=== PATIENT | female | born 1985 | race Caucasian/White ===

== ENCOUNTER 2017-03-14 16:02 | Outpatient (CLI) | payer OTHER ==
[~2017-03-14] VITALS: Ht 160 cm; Wt 89.9 kg
[2017-03-14 16:08] VITALS: Ht 160 cm; Wt 89.9 kg
[2017-03-14 16:09] VITALS: BP 121/81; PULSE 102; RESP 18
--- NOTE | 2017-03-14 16:42 | RADRPT ---
PROCEDURE: US OB biophysical profile. CLINICAL INDICATION: decreased movements, contractions TECHNIQUE: Multiple sonographic images of the pelvis were obtained. The images were reviewed on a PACS workstation. COMPARISON: No prior studies are available for comparison. FINDINGS: There is a single viable intrauterine gestation. Cardiac activity is present with 140 beats per min [place]. There is a vertex presentation. The placenta is posterior. There is no evidence of placental abruption. There is a normal amount of amniotic fluid with an JEWEL = 14.6 cm. Biophysical profile: movement 2/2 tone 2/2. breathing 2/2 JEWEL 2/2 Total 01/10 RPTAT: AA . IMPRESSION: Normal biophysical profile. . .Chavez Worley MD, MD Date Time Electronically viewed and signed by .Chavez Worley MD, MD on 03/14/2017 16:41 .S/
[2017-03-14 17:23] LABS: ADD UMIC YES; UR ASCORBIC ACID NEGATIVE (NEGATIVE); UR BACTERIA MANY /HPF (NONE SEEN); UR BILIRUBIN (Dip) NEGATIVE (NEGATIVE); UR BLOOD (Dip) NEGATIVE (NEGATIVE); UR CLARITY CLOUDY (CLEAR); UR COLOR YELLOW (YELLOW); UR GLUCOSE (Dip) NEGATIVE (NEGATIVE); UR KETONES (Dip) NEGATIVE (NEGATIVE); UR LEUKOCYTE ESTERASE (Dip) TRACE Leu/ul (NEGATIVE); UR NITRITE (Dip) NEGATIVE (NEGATIVE); UR RBC 3 /HPF (0-5); UR SPECIFIC GRAVITY (Dip) 1.006 (1.003-1.030); UR SQUAMOUS EPITHELIAL CELL FEW /HPF (FEW); UR TOTAL PROTEIN (Dip) NEGATIVE (NEGATIVE); UR UROBILINOGEN (Dip) NEGATIVE (NEGATIVE)
[2017-03-14 17:36] LABS: BASOPHILS % 0.2 % (0.0-2.0); EOSINOPHILS % 0.4 % (0.0-7.0); HEMATOCRIT 38.8 % (37.0-47.0); HEMOGLOBIN 12.6 g/dl (12.0-16.0); LYMPHOCYTES # 1.7 10^3/ul (0.8-2.9); LYMPHOCYTES % 15.9 % (15.0-51.0); MEAN CORPUSCULAR HEMOGLOBIN 25.8 pg (29.0-33.0); MEAN CORPUSCULAR HGB CONC 32.5 g/dl (32.0-37.0); MEAN CORPUSCULAR VOLUME 79.3 fl (82.0-101.0); MONOCYTE # 0.5 10^3/ul (0.3-0.9); MONOCYTES % 4.9 % (0.0-11.0); NEUTROPHIL # 8.4 10^3/ul (1.6-7.5); NEUTROPHILS % 77.9 % (39.0-77.0); PLATELET COUNT 195 10^3/UL (140-415); RED BLOOD COUNT 4.89 10^6/ul (4.20-5.40); RED CELL DISTRIBUTION WIDTH 14.7 % (11.5-14.5); WHITE BLOOD COUNT 10.8 10^3/ul (4.8-10.8)
[2017-03-14] MEDS ORDERED: LACTATED RINGER'S 1,000 ML IV SCH (18:00)
[2017-03-15] MEDS ORDERED: FERR256T PO (01:16)
[2017-03-15] MEDS ORDERED: PREN1TAB79 PO (01:16)
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
== END 2017-03-15 01:21 | disposition home or self-care (01) ==
LOC: OBT 16:02 → L-D 16:03 → OBT 03-15 01:21
PROVIDERS: ATTEND Obstetrics & Gynecology
DX: O9A.213 Injury, poisoning and certain other consequences of external causes complicating pregnancy, third trimester (principal); Z3A.37 37 weeks gestation of pregnancy; V49.9XXA Car occupant (driver) (passenger) injured in unspecified traffic accident, initial encounter; Y92.410 Unspecified street and highway as the place of occurrence of the external cause
CPT/HCPCS: 36415; 76818; 81001; 85025; 85460; 86850; 86870; 86885; 86900; 86901; 96360; 96361; 96372; J2790; J7120; Z7500; G0463

== ENCOUNTER 2017-03-28 21:31 | Outpatient (CLI) | payer OTHER ==
[~2017-03-28] VITALS: Ht 160 cm; Wt 92.0 kg
[~2017-03-28 21:31] MED LIST: FERR256T PO; PREN1TAB79 PO
[2017-03-28 21:55] VITALS: Ht 160 cm; Wt 92.0 kg
--- NOTE | 2017-03-28 22:39 | RADRPT ---
PROCEDURE: Obstetrical ultrasound for biophysical profile CLINICAL INDICATION: Biophysical profile. . TECHNIQUE: Obstetrical ultrasound of the uterus for biophysical profile. Transabdominal views are obtained. COMPARISON: 03/14/2017 FINDINGS: Single intrauterine gestation. Presentation: Cephalic. Placenta: Posterior No evidence of placental abruption. No evidence of placenta previa. breathing movement = 2/2 tone = 2/2 motion = 2/2 JEWEL = 2/2 JEWEL = 11.2 cm heart rate: 146 beats per minute IMPRESSION: Single intrauterine gestation. Biophysical profile 01/10 RPTAT: AADD .Nawaf Bermudez MD, MD Date Time Electronically viewed and signed by .Nawaf Bermudez MD, on 03/28/2017 22:39 .B/
--- NOTE | 2017-03-28 22:59 | PN ---
Triage Information Date/Time Reason for visit: DFM Weeks of Gestation 39 weeks /Para Diabetes: none Hypertention: none Objective Heart Rate: 120's Heart Rate Comments Category I Contractions: 6-10 Minutes Apart Results/Medications Imaging Results [facility] 01/10 Disposition: Discharge Assessment/Plan While being monitored, patient feels the baby move well. D/C home. AJ HARRIS MD Mar 28, 2017 22:59
--- NOTE | 2017-03-29 00:02 | RADRPT ---
PROCEDURE: Obstetrical ultrasound greater than 14 weeks CLINICAL INDICATION: Decreased movement TECHNIQUE: Real time sonographic imaging of the gravid uterus is performed transabdominally and mu ltiple static cr scale and Doppler images are submitted for review as are measurements. The image s are reviewed on the PACS. COMPARISON: Biophysical profile 03/28/2017. 03/14/2017 FINDINGS: There is a single living intrauterine gestation in cephalic presentation. The heart beat is estimated at 154 bpm. The measurements are as follows: BPD:8.26 cm HC:31.95 cm AC:35.68 cm FL:7.60 cm Estimated gestational age is 37 weeks. The estimated date of delivery is 04/18/2017. The estimated weight is 3405 grams. Placenta is posterior and grade 3. There is no evidence of placenta previa or abruption. The amniotic fluid index is not calculated RPTAT:HJJR IMPRESSION: 1. Single viable intrauterine gestation in cephalic presentation estimated at 37 weeks, appropriate interval growth compared to 03/14/2017 with the estimated date of delivery 04/18/2017. 2. Estimated weight 3405 g. Physician Deann Date Time Electronically viewed and signed by Physician Deann on 03/29/2017 00:02 /
== END 2017-03-28 23:11 | disposition home or self-care (01) ==
LOC: OBT 21:31 → L-D 21:33 → OBT 23:11
PROVIDERS: ATTEND Obstetrics & Gynecology
DX: O36.8130 Decreased fetal movements, third trimester, not applicable or unspecified (principal); Z3A.39 39 weeks gestation of pregnancy
CPT/HCPCS: 76815; 76818; Z7500; G0463

== ENCOUNTER 2017-03-31 20:36 | Inpatient (IN) | payer OTHER ==
[~2017-03-31] VITALS: Ht 160 cm; Wt 92.2 kg
[2017-03-31] MEDS ORDERED: MISOPROSTOL 200 MCG TAB PR PRN (21:00)
[2017-03-31] MEDS ORDERED: CARBOPROST 250 MCG INJ IM PRN (21:00)
[2017-03-31] MEDS ORDERED: LIDOCAINE 1% (MPF) 30 ML INJ INJ PRN (21:00)
[2017-03-31] MEDS ORDERED: OXYTOCIN 30 UNITS/LR 500 ML IV PRN (21:00)
[2017-03-31] MEDS ORDERED: IBUPROFEN 600 MG TAB PO PRN (21:00)
[2017-03-31] MEDS ORDERED: METHYLERGONOVINE 0.2 MG INJ IM PRN (21:00)
[2017-03-31] MEDS ORDERED: OXYTOCIN 30 UNITS/LR 500 ML IV SCH ×2 (21:00)
[2017-03-31] MEDS ORDERED: LACTATED RINGER'S 1,000 ML IV PRN (21:00)
[2017-03-31] MEDS ORDERED: BUTORPHANOL 2 MG INJ IV PRN (21:00)
[2017-03-31 22:16] VITALS: BP 122/71; PULSE 91; RESP 18; Ht 160 cm; Wt 92.2 kg
[2017-03-31] MEDS: LACTATED RINGER'S 1,000 ML IV SCH (22:18)
--- NOTE | 2017-03-31 22:20 | TRIAGE ---
OB Triage Datetime Report Generated by CPN: 03/31/2017 22:19 Datetime: 03/31/2017 20:25 Stage of : OB Triage Vaginal Exam Dilatation (cms): 1.5 Effacement (%): 70 Station: -2 Exam By: DR. DELSHAD Membrane Status: Intact Datetime: 03/31/2017 20:14 Stage of : OB Triage Assessment Type: Triage Maternal Assessment Level of Consciousness: Fully Conscious Headache: Denies Blurred Vision: No Respiratory Effort: Unlabored; Regular Rhythm; Equal Expansion Nausea/Vomiting: Denies RUQ Epigastric Pain: Denies Facial Edema: None Fall Risk Assessment History of Falling: (0) No Secondary Diagnosis: (0) No Ambulatory Aid: (0) Bedrest/Nurse Assist IV Therapy: (0) No Gait: (0) Normal/Bedrest/Immobile Mental Status: (0) Oriented to Own Ability Fall Score: 0 Fall Risk Score Definition: No Risk: No action required Datetime: 03/31/2017 20:12 Time of Arrival: 03/31/2017 20:12 EGA: 40.0 Arrived By: Ambulatory Arrived From: Home Chief Complaint: F/U NST/BPP PER DR. HARRIS ORDERS Datetime: 03/28/2017 22:06 Membrane Status: Intact Datetime: 03/28/2017 21:23 Stage of : OB Triage Assessment Type: Triage Maternal Assessment Level of Consciousness: Fully Conscious DTR's/Clonus: DTRs 2+; No Clonus Headache: Denies Blurred Vision: No Respiratory Effort: Unlabored; Regular Rhythm; Equal Expansion Nausea/Vomiting: Denies RUQ Epigastric Pain: Denies Facial Edema: None Fall Risk Assessment History of Falling: (0) No Secondary Diagnosis: (0) No Ambulatory Aid: (0) Bedrest/Nurse Assist IV Therapy: (0) No Gait: (0) Normal/Bedrest/Immobile Mental Status: (0) Oriented to Own Ability Fall Score: 0 Fall Risk Score Definition: No Risk: No action required Datetime: 03/28/2017 21:19 Time of Arrival: 03/28/2017 21:21 EGA: 39.4 Arrived By: Ambulatory Arrived From: Home Chief Complaint: CAME WITH RX FROM OFFICE FOR BPP/EFW Movement: Present Contractions: Denies/Absent Rupture of Membranes: Denies Vaginal Discharge: Denies Recent Sexual Intercouse: Denies Abdominal Trauma: Not Applicable Patient Complaints: None Time Provider Notified: 03/28/2017 22:40 Provider Notified: KIMBERLY Initial Plan: EFM, BPP, EFW Datetime: 03/14/2017 23:40 Stage of : OB Triage Datetime: 03/14/2017 19:36 Fall Score: 0 Fall Risk Score Definition: No Risk: No action required Datetime: 03/14/2017 16:15 EGA: 37.4 Fall Score: 0 Fall Risk Score Definition: No Risk: No action required
[2017-03-31] MEDS: MISOPROSTOL 25 MCG CAPSULE PO SCH (22:26)
--- NOTE | 2017-03-31 23:10 | RADRPT ---
PROCEDURE: Obstetrical ultrasound for biophysical profile CLINICAL INDICATION: Biophysical profile. . TECHNIQUE: Obstetrical ultrasound of the uterus for biophysical profile. Transabdominal views are obtained. COMPARISON: 03/28/2017 FINDINGS: Single intrauterine gestation. Presentation: Cephalic. Placenta: Fundal No evidence of placental abruption. No evidence of placenta previa. breathing movement = 2/2 tone = 2/2 motion = 2/2 JEWEL = 2/2 JEWEL = 8.9 cm heart rate: 132 beats per minute IMPRESSION: Single intrauterine gestation. Biophysical profile 01/10 RPTAT: AADD .Nawaf Bermudez MD, MD Date Time Electronically viewed and signed by .Nawaf Bermudez MD, on 03/31/2017 23:10 .B/
[2017-04-01] MEDS: MISOPROSTOL 25 MCG CAPSULE PO SCH (01:00)
[2017-04-01] MEDS ORDERED: OXYTOCIN 30 UNITS/LR 500 ML IV PRN ×2 (02:00→12:30)
[2017-04-01] MEDS ORDERED: FENTAnyl 2MCG/ML-ROPIV 0.2% 100 ML ONE (03:02)
[2017-04-01] MEDS: LACTATED RINGER'S 1,000 ML IV SCH ×2 (03:30→08:47)
[2017-04-01] MEDS ORDERED: FENTAnyl 2MCG/ML-ROPIV 0.2% 100 ML BAG EPI SCH (07:00)
[2017-04-01] MEDS ORDERED: NALOXONE (0.4 MG/ML) INJ IV PRN (07:00)
--- NOTE | 2017-04-01 09:57 | HP ---
Date/Time of Note Date/Time of Note DATE: 04/01/17 TIME: 09:54 OB - History Hx of Present Chief Complaint: follow up on decreased movement Estimated Due Date: Mar 31, 2017 : 1 Para: 0 Care: Good Care Ultrasounds: Normal mid trimester US Obstetrical Complications: None Medical Complications: None Past Family/Social History * Past Medical, Surgical, Family and Obstetric Histories reviewed from chart. GBS Status: Negative OB Admission Exam Vital Signs Vital Signs Vital Signs Date Time Temp Pulse Resp B/P Pulse Ox O2 Delivery O2 Flow Rate FiO2 03/31/17 22:16 98.3 91 18 122/71 Room Air Physical Exam HEENT: WNL Heart: Rhythm Normal Lungs: Clear, Equal Abdomen: WNL Extremities: Normal Reflexes: Normal Cervical Dilatation: 1cm Effacement: 75% Station: -2 Membranes: Intact Heart Rate: 130's Accelerations: Accelerations Present Decelerations: No Decelerations Varibility: Moderate Last 72 hours Lab Results CBC & BMP 03/31/17 22:00 OB Assessment/Plan Reason for admission: induction of labor Plan: Induction Induction Method: per Misoprostol Protocol AJ HARRIS MD Apr 01, 2017 09:57
--- NOTE | 2017-04-01 10:53 | LDN ---
Date/Time of Note Date/Time of Note DATE: 04/01/17 TIME: 10:50 Delivery Summary Weeks of Gestation 40 weeks and 1 day Placenta Delivered: Spontaneously Meconium: none Episiotomy: No Perineal laceration: 1 Laceration repair: First degree laceration repaired with 3-0 Vicryl. Anesthesia type: Epidural Estimated blood loss: 300 Sponge & Needle done & correct: Yes All needle counts correct: Yes Any foreign bodies felt in the: No Problems: Delivery Information Sex Sex: male Apgars 1 Minute: 9 5 Minute: 9 Suctioning Nose & mouth suctioned at dorothea: Yes Delee suction performed: No Umbilical Cord Umbilical cord with: 3 Vessels Cord presentations: no nuchal cord Cord Blood was obtained: Yes Mother & Baby Disposition Disposition Mom & Baby to Maternity; Good: Yes AJ HARRIS MD Apr 01, 2017 10:53
[2017-04-01] MEDS ORDERED: HYDROCODONE/APAP (5/325) TAB PO PRN (12:30)
[2017-04-01] MEDS ORDERED: DIBUCAINE 1% 30 GM OINT PR PRN (12:30)
[2017-04-01] MEDS ORDERED: WITCH HAZEL/GLYCERIN PAD PR PRN (12:30)
[2017-04-01] MEDS ORDERED: ACETAMINOPHEN 325 MG TAB PO PRN (12:30)
[2017-04-01] MEDS ORDERED: BENZOCAINE 20% 56 ML SPRAY TOP PRN (12:30)
[2017-04-01] MEDS ORDERED: MISOPROSTOL 200 MCG TAB PR PRN (12:30)
[2017-04-01] MEDS ORDERED: CARBOPROST 250 MCG INJ IM PRN (12:30)
[2017-04-01] MEDS ORDERED: LANOLIN 7 GM TUBE TOP PRN (12:30)
[2017-04-01] MEDS ORDERED: METHYLERGONOVINE 0.2 MG INJ IM PRN (12:30)
[2017-04-01 12:35] VITALS: BP 109/65; PULSE 79; RESP 18
[2017-04-01] MEDS: IBUPROFEN 600 MG TAB PO SCH ×2 (13:16→17:31)
[2017-04-01] MEDS: LACTATED RINGER'S 1,000 ML IV* SCH ×2 (15:28→20:28)
[2017-04-01 16:23] VITALS: BP 98/56; PULSE 89; RESP 18
[2017-04-01 19:30] VITALS: BP 109/80; PULSE 95
[2017-04-01] MEDS: SENNA/DOCUSATE NA (8.6MG/50MG) TAB PO SCH (21:42)
[2017-04-02] MEDS: IBUPROFEN 600 MG TAB PO SCH ×4 (00:18→17:35)
[2017-04-02 00:20] VITALS: BP 109/70; PULSE 115
[2017-04-02] MEDS: LACTATED RINGER'S 1,000 ML IV* SCH (04:28)
[2017-04-02 04:45] VITALS: BP 99/55; PULSE 97; RESP 18
[2017-04-02 08:35] VITALS: BP 93/59; PULSE 78; RESP 14
[2017-04-02] MEDS ORDERED: INFLUENZA VIRUS VACCINE 0.5 ML SYG IM* ONE (09:00)
[2017-04-02] MEDS: SENNA/DOCUSATE NA (8.6MG/50MG) TAB PO SCH ×2 (10:05→20:51)
[2017-04-02 15:35] VITALS: BP 94/50; PULSE 98; RESP 16
--- NOTE | 2017-04-02 18:56 | DS ---
Date/Time of Note Date/Time of Note DATE: 04/02/17 TIME: 18:55 Obstetrical Discharge Record Final Diagnosis Final Diagnosis: Term delivered Vaginal Delivery Obstetrical Delivery: Spontaneous Complications Induction: Yes Condition on Discharge Physical Assessment Voiding: Yes Bowel Movement: Yes Breast: Soft, non-tender, Filling Fundus: Firm Calf Tenderness: No Patient Condition: Stable AJ HARRIS MD Apr 02, 2017 18:56
[2017-04-02 20:15] VITALS: BP 120/69; PULSE 93; RESP 18
[2017-04-03] MEDS: IBUPROFEN 600 MG TAB PO SCH ×3 (01:28→11:49)
[2017-04-03 04:00] VITALS: BP 104/57; PULSE 81; RESP 18
[2017-04-03 08:06] VITALS: BP 108/67; PULSE 72; RESP 14
[2017-04-03] MEDS: SENNA/DOCUSATE NA (8.6MG/50MG) TAB PO SCH (08:38)
[2017-04-03] MEDS ORDERED: DIPHTH/TET/ACEL PERTUSS (ADULT) 0.5 ML VIAL IM* ONE (09:00)
== END 2017-04-03 14:02 | disposition home or self-care (01) | DRG 775 ==
LOC: OBT 20:36 → L-D 20:38 → OBT 20:40 → L-D 22:13 → PP1 04-01 12:31
PROVIDERS: ADMIT Obstetrics & Gynecology; ATTEND Obstetrics & Gynecology
PROC: 10E0XZZ Delivery of Products of Conception, External Approach (ICD-10-PCS; principal; 2017-04-01)
PROC: 0HQ9XZZ Repair Perineum Skin, External Approach (ICD-10-PCS; 2017-04-01)
PROC: 3E0P3VZ Introduction of Hormone into Female Reproductive, Percutaneous Approach (ICD-10-PCS; 2017-04-01)
DX: O48.0 Post-term pregnancy (principal); O76 Abnormality in fetal heart rate and rhythm complicating labor and delivery; Z3A.40 40 weeks gestation of pregnancy; O70.0 First degree perineal laceration during delivery; Z37.0 Single live birth
CPT/HCPCS: 62319; 76818; 85025; 85610; 85730; 86592; 86850; 86870; 86885; 86900; 86901; 87340; 90686; 90715; G0463; J0595; J2590; J2790; J3010; J7120